=== PATIENT | female | born 1990 | race Caucasian/White ===

== ENCOUNTER → 2020-01-01 | Outpatient (CLI) | payer SELFPAY ==
[2020-01-09 09:34] LABS: HPV, High Risk Negative
[2020-01-09 09:35] LABS: Chlamydia By Nucleic Acid AMP Negative; Gonococcus By Nucleic Acid AMP Negative
== END | disposition home or self-care (01) ==
LOC: LABSPEC 16:45
PROVIDERS: Visit Provider Obstetrics & Gynecology
DX: Z12.4 Encounter for screening for malignant neoplasm of cervix (principal); Z11.3 Encounter for screening for infections with a predominantly sexual mode of transmission
CPT/HCPCS: 87491; 87591; 87623; 87624; 88175; G0145

== ENCOUNTER → 2020-01-15 16:17 | Outpatient (CLI) | payer SELFPAY ==
[2020-01-15 17:12] LABS: Absolute Lymphocyte Count 3.08 X10^3/uL (0.83-4.51); Absolute Neutrophil Count 9.2 X10^3/uL (2.0-7.7); Basophil# 0.04 X10^3/uL; Basophil% 0.3 % (0-1); Eosinophil# 0.08 X10^3/uL; Eosinophils% 0.6 % (0-5); Hematocrit 42.1 % (37-47); Hemoglobin 14.1 g/dL (12.0-15.0); Lymphocyte # 3.08 X10^3/ul (4.0); Lymphocyte % 23.2 % (19-41); Mean Corp Hgb Conc 33.5 g/dL (32-36); Mean Corpuscular Hgb 30.1 pg (27.0-32.0); Mean Platelet Vol. 9.7 fl (6.2-12.0); Monocyte# 0.84 X10^3/uL; Monocyte% 6.3 % (0-10); NRBC Flagged by Analyzer 0 % (0-5); Neutrophil # 9.16 X10^3/uL (2.7-7.7); Neutrophil % 69.1 % (47-70); Platelet Count 315 K/mm3 (150-450); RBC Distribution Width CV 12.2 % (11.6-14.6); RBC Distribution Width SD 39.6 fl (35.1-43.9); Red Blood Count 4.68 M/mm3 (4.2-5.4); White Blood Count 13.3 K/mm3 (4.4-11.0)
[2020-01-15 17:13] LABS: Color, Urine Straw (Yellow); Glucose, Dipstick Normal (Normal); Ketone-Dipstick Negative (Negative); Leukocyte Esterase-Dipstick 25 /ul (Negative); Nitrite-Dipstick Negative (Negative); Occult Blood-Urine Negative /ul (Negative); Protein-Dipstick Negative (Negative); Specific Gravity, Urine 1.005 (1.002-1.030); Urine Bilirubin Dipstick Negative (Negative); Urine Clarity Clear (Clear); Urine Urobilinogen Normal (Normal)
[2020-01-15 17:35] LABS: Amphetamine Urine VISTA NEGATIVE (<1000 ng/mL); Barbiturate Urine VISTA NEGATIVE (< 200 ng/mL); Benzodiazepine Urine VISTA NEGATIVE (< 200 ng/mL); Cocaine Urine VISTA NEGATIVE (< 300 ng/mL); Ecstacy Urine VISTA NEGATIVE (< 500 ng/mL); Methadone Urine VISTA NEGATIVE (< 300 ng/mL); PCP Urine VISTA NEGATIVE (< 25 ng/mL); THC Urine VISTA NEGATIVE (< 50 ng/mL); Vista UDS pH Range 6
[2020-01-15 18:51] LABS: Thyroid Stim Hormone (TSH) 2.03 uIU/mL (0.358-3.74)
[2020-01-16 10:34] LABS: HIV - WCH Non-Reactive (Nonreactive); Hepatitis B Surface Antigen Non-Reactive (Nonreactive); Hepatitis C Antibody Non-Reactive (Nonreactive); Rubella IgG 96.6 IU/mL
[2020-01-16 21:57] LABS: Prenatal RPR NONREACTIVE (NONREACTIVE)
== END ==
PROVIDERS: Visit Provider Obstetrics & Gynecology
DX: Z34.81 Encounter for supervision of other normal pregnancy, first trimester (principal)
CPT/HCPCS: 36415; 80307; 81002; 84443; 85025; 86703; 86762; 86803; 87340

== ENCOUNTER → 2020-06-05 09:08 | Outpatient (CLI) | payer SELFPAY ==
[2020-06-05 11:12] LABS: Hematocrit 37.9 % (37-47); Hemoglobin 12.5 g/dL (12.0-15.0); Mean Corpuscular Hgb 30.9 pg (27.0-32.0); Mean Corpuscular Volume 93.8 fL (81-99); Mean Platelet Vol. 10.1 fl (6.2-12.0); Platelet Count 281 K/mm3 (150-450); RBC Distribution Width CV 12.6 % (11.6-14.6); RBC Distribution Width SD 43.3 fl (35.1-43.9); Red Blood Count 4.04 M/mm3 (4.2-5.4); White Blood Count 11.5 K/mm3 (4.4-11.0)
[2020-06-05 11:18] LABS: Glucose Challenge Gest 1H 50g 149 mg/dL (70-140)
== END ==
PROVIDERS: Visit Provider Student in an Organized Health Care Education/Training Program
DX: Z34.83 Encounter for supervision of other normal pregnancy, third trimester (principal)
CPT/HCPCS: 36415; 82950; 85027

== ENCOUNTER → 2020-06-13 09:42 | Outpatient (CLI) | payer SELFPAY ==
[2020-06-13 11:01] LABS: Glucose GTT-Gestation. Fasting 86 mg/dL (<105)
[2020-06-13 11:38] LABS: Glucose GTT-Gestational 1 Hr 180 mg/dL (<190)
[2020-06-13 13:37] LABS: Glucose GTT-Gestational 2 Hr 181 mg/dL (<165)
[2020-06-13 14:53] LABS: Glucose GTT-Gestational 3 Hr 141 L (<145)
== END ==
PROVIDERS: PCP Family Medicine; Referring Provider Student in an Organized Health Care Education/Training Program; Visit Provider Student in an Organized Health Care Education/Training Program
DX: O24.912 Unspecified diabetes mellitus in pregnancy, second trimester (principal); Z3A.00 Weeks of gestation of pregnancy not specified
CPT/HCPCS: 36415; 82951; 82952

== ENCOUNTER → 2020-07-29 | Outpatient (CLI) | payer SELFPAY | END | disposition home or self-care (01) | LOC: LABSPEC 14:33 | PROVIDERS: PCP Family Medicine; Visit Provider Student in an Organized Health Care Education/Training Program | DX: Z36.85 Encounter for antenatal screening for Streptococcus B (principal) | CPT/HCPCS: 87081 ==

== ENCOUNTER → 2020-08-05 15:07 | Outpatient (CLI) | payer SELFPAY ==
[2020-08-05 15:21] LABS: Hematocrit 38.3 % (37-47); Hemoglobin 12.6 g/dL (12.0-15.0); Mean Corp Hgb Conc 32.9 g/dL (32-36); Mean Corpuscular Hgb 29.9 pg (27.0-32.0); Mean Corpuscular Volume 90.8 fL (81-99); Mean Platelet Vol. 9.9 fl (6.2-12.0); Platelet Count 288 K/mm3 (150-450); RBC Distribution Width CV 13.2 % (11.6-14.6); RBC Distribution Width SD 43.1 fl (35.1-43.9); Red Blood Count 4.22 M/mm3 (4.2-5.4); White Blood Count 13.1 K/mm3 (4.4-11.0)
[2020-08-05 15:28] LABS: Protein, Urine (Random) 6.5 mg/dL (<11.9); Protein:Creat Ratio 167 mg/g CRE (0-200)
[2020-08-05 15:35] LABS: ALB/GLOB Ratio 0.7 RATIO (0.9-2.4); AST(SGOT) 11 U/L (15-37); Alanine Aminotransfer ALT/SGPT 17 U/L (13-56); Albumin, Serum 2.8 g/dL (3.2-5.0); Alkaline Phosphatase 173 U/L (45-117); Anion Gap 9 (5-15); BUN 9 mg/dL (7-18); BUN/Creat Ratio 13.5 RATIO (10-20); Chloride 106 mmol/L (98-107); Creatinine, Serum 0.67 mg/dL (0.55-1.02); EST Glomerular Filtration Rate 112 mL/min (>60); Est Glom Filt Rate - Afr Amer 136 mL/min (>60); Globulin 4.1 g/dL (2.2-4.2); Glucose 105 mg/dL (74-106); LDH 137 U/L (84-246); Potassium 3.9 mmol/L (3.5-5.1); Protein, Total 6.9 g/dL (6.4-8.2); Sodium Level 138 mmol/L (136-145)
== END ==
PROVIDERS: PCP Family Medicine; Visit Provider Student in an Organized Health Care Education/Training Program
DX: O16.9 Unspecified maternal hypertension, unspecified trimester (principal); Z3A.00 Weeks of gestation of pregnancy not specified
CPT/HCPCS: 36415; 80053; 82570; 83615; 84156; 85027; 87086; 87088

== ENCOUNTER 2020-08-12 18:50 | Inpatient (IN) | payer SELFPAY ==
[2020-08-12 19:29] VITALS: BP 133/102; PULSE 88
[2020-08-12 19:30] VITALS: PULSE 94; TEMP 36.6; O2SAT 98; O2SAT 99
[2020-08-12] MEDS: Lactated Ringers 1,000 ML 50 ML IV (19:40)
[2020-08-12 19:47] VITALS: BP 133/94; PULSE 83
[2020-08-12 20:00] VITALS: BMI 38.7
[2020-08-12 20:06] LABS: Absolute Neutrophil Count 8.5 X10^3/uL (2.0-7.7); Basophil# 0.04 X10^3/uL; Basophil% 0.3 % (0-1); Eosinophils% 0.8 % (0-5); Hematocrit 36.6 % (37-47); Hemoglobin 12.2 g/dL (12.0-15.0); Lymphocyte % 19.4 % (19-41); Mean Corp Hgb Conc 33.3 g/dL (32-36); Mean Corpuscular Hgb 30.1 pg (27.0-32.0); Mean Corpuscular Volume 90.4 fL (81-99); Mean Platelet Vol. 10.1 fl (6.2-12.0); Monocyte# 0.78 X10^3/uL; Monocyte% 6.6 % (0-10); NRBC Flagged by Analyzer 0 % (0-5); Neutrophil # 8.53 X10^3/uL (2.7-7.7); Platelet Count 286 K/mm3 (150-450); RBC Distribution Width CV 13.5 % (11.6-14.6); RBC Distribution Width SD 43.9 fl (35.1-43.9); Red Blood Count 4.05 M/mm3 (4.2-5.4); White Blood Count 11.9 K/mm3 (4.4-11.0)
[2020-08-12] MEDS: miSOPROStol 25 MCG TABLET VAGINAL (20:30)
--- NOTE | 2020-08-12 20:41 | HP.PCM_ITS ---
- Problem List (1) 38 weeks gestation of Status: Acute History Date of Admission: 08/12/20 Final JARRELL: 08/25/20 Gestational age: 38 Weeks and 1 Days History of this : This is a 29 year-old, G [1], P [], at 38 1/7 weeks gestational age admitted for IOL with gestational HTN. Allergies No Known Allergies Allergy (Verified 08/12/20 19:58) Home Medications: Home Medications Pnv No.103/Folic/Om3s/Fish Oil [ Gummies] 1 ea PO 08/12/20 Smoking Status: Never smoker Alcohol: None Number of Fetus(es): 1 NST - FHR Rate Baby A Baseline: 150 Variability:: Moderate Accelerations:: 15 x 15 Decelerations:: None NST Reactive:: Yes FHR Category:: Category I Uterine Activity:: 0/10 History Past Pregnancies: Past Pregnancies Delivery Date Name GA/ Weeks Outcome Route Wt Sex Labor Length Anesthesia Delivery Location Provider FOB Labs: Mom[facility] Microbiology 08/12/20 19:50 Mucosa - Nose SARS-CoV-2 Antigen (Rapid) - Final Mom[facility] Labs & Results 08/12/20 08/12/20 19:40 19:40 WBC 11.9 H RBC 4.05 L Hgb 12.2 Hct 36.6 L MCV 90.4 MCH 30.1 MCHC 33.3 RDW Std Deviation 43.9 RDW Coeff of Cassie 13.5 Plt Count 286 MPV 10.1 Immature Gran % (Auto) 0.900 Neut % (Auto) 72.0 H Lymph % (Auto) 19.4 [place] % (Auto) 6.6 Eos % (Auto) 0.8 Baso % (Auto) 0.3 Absolute Neuts (auto) 8.5 H Absolute Lymphs (auto) 2.30 Nucleated RBC % 0 Blood Type Pending Antibody Screen Pending Course Did the patient receive Yes care? Labs Blood Type: A RH: POSITIVE RPR/VDRL/Syphilis Nonreactive Rubella status Immune HbSAg Negative Date Done: 01/15/20 Chlamydia Negative Gonorrhea Negative HIV/AIDS Non-Reactive Group B Strep: Negative Current Obstetrical History Gestational Diabetes No Incompetent Cervix No Infertility No IUGR No Macrosomia No Hypertension/Pre-eclampsia Yes Placenta Previa/Abruption No PTL/PROM No Uterine anomaly No Oligohydramnios No Polyhydramnios No Multiple gestation No Past Medical History Asthma No Diabetes No Hypertension No Heart disease No Mitral valve prolapse No Neurologic/Seizure disorder/ No Migraines Kidney disease No Liver disease No Varicosities No Clotting disorders/Hx of DVT No Thyroid Dysfunction No Other medical diseases No Psychiatric disorders No Major trauma No Abnormal PAP smear No Sleep apnea No Mammogram in the last 2 years No Social History Marital Status: Alleged father Norman Hx Smoking No Smoking Status Never smoker Expected Delivery Method: Spontaneous Vaginal Number of Visits: 12 Review of Systems Constitutional: Denies: Chills, Fever Eyes: Denies: Double vision, Vision Change HEENT: Denies: Head Aches Cardiovascular: Reports: Edema. Denies: Chest Pain Respiratory: Denies: Cough, Shortness of Breath Gastrointestinal: Denies: Abdominal Pain, Nausea, Vomiting Gynecological: Denies: Vaginal bleeding Physical Exam Vitals: Vital Signs Temp Pulse BP Pulse Ox 97.8 F 83 133/94 H 99 08/12/20 19:30 08/12/20 19:47 08/12/20 19:47 08/12/20 19:30 General: Alert, Oriented x3, Cooperative HEENT: Atraumatic, Normocephalic Cardiovascular: Regular rate, Regular Rhythm, Normal S1, Normal S2 Lungs: Clear to auscultation, Normal air movement Abdomen: Soft, Non Tender, Non-Distended, Gravid Extremities:: No edema Neurological: Neuro grossly intact Estimated gestational size: Appropriate for gestational size Cervix Dilation (cm): 1 - posterior, firm per RN exam Station: -3 Effacement (%): 60 Assessment/Plan All Active Problems 38 weeks gestation of (Acute) This is a 29 year-old, G [1], P [], at 38 1/7 weeks gestational age. -US confirms CEPHALIC -Misoprostol for IOL -Reviewed plan of care. Pt and given opportunity to ask questions and questions answered to their satisfaction.
[2020-08-12 22:38] VITALS: BP 135/93; PULSE 78
[2020-08-13] VITALS (64 sets, daily range): BP systolic 111–146; BP diastolic 56–97; PULSE 76–116; RESP 16–18; TEMP 36.3–37.3; O2SAT 92–100
[2020-08-13] MEDS: miSOPROStol 25 MCG TABLET VAGINAL (00:25)
[2020-08-13 00:57] LABS: ROM Internal Control Test YES-OK TO RESULT pt. (Internal QC); ROM Patient Test Negative (Negative)
[2020-08-13] MEDS: Lactated Ringers 500 ML 999 ML IV ×5 (02:16→17:28)
--- NOTE | 2020-08-13 03:42 | PCM.PN.BLA ---
Progress Note LABOR PROGRESS NOTE Mariza feels well. Denies fever, chills, nausea, headache, vision changes. AVSS GEN - NAD, AAO x 3 FHR 160, moderate variability, + recurrent late decelerations TOCO 5-6/10 min SVE deferred, recent SVE 1.5/60/-2 by RN A/P: 29yo G1 @ 38 2/7wga hx gHTN with late decelerations, tachysystole, Cat II FHR -Informed by nursing staff repositioning done as well as IV bolus. Will give additional 500cc bolus with terbutaline, O2 supplementation and re-evaluate. STROKE Vital Signs/Narrative: Vital Signs Temp Pulse BP Pulse Ox 08/13/20 03:25 80 133/93 H 99 08/13/20 02:07 77 111/70 08/13/20 00:20 76 134/89 H 08/13/20 00:19 98.4 F 97
[2020-08-13] MEDS: Terbutaline 1 MG/ML Vial 0.25 MG SC (03:56)
[2020-08-13] MEDS: Oxytocin 30 units/NS 500 ml 30 UNITS/500 ML IV.SOLN IV (05:13)
[2020-08-13] MEDS: Ondansetron 4 MG/2 ML Vial IV (07:40)
[2020-08-13] MEDS: fentaNYL-bupivacaine (epidural) 100 ML BAG EPIDURAL ×3 (08:25→19:05)
[2020-08-13] MEDS: Lactated Ringers 1,000 ML 200 ML IV ×2 (09:23→14:30)
[2020-08-13] MEDS: Oxytocin 30 units/NS 500 ml 30 UNITS/500 ML IV.SOLN 334 UNITS IV (19:28)
--- NOTE | 2020-08-13 19:40 | PCM.OPRPT ---
Vaginal Delivery Maternal Presentation: Active Labor Amniotic Membrane Rupture Type: Spontaneous Amniotic Fluid Description: Moderate meconium Final JARRELL: 08/25/20 Final JARRELL Source: US <20 weeks Gestational age: 38 Weeks and 2 Days doctor who attended delivery (if requested by OB): Arabella Newman thick MSF Date of Procedure: 08/13/20 Pre-Operative Diagnosis: IUP, Gestational HTN Post-Operative Diagnosis: IUP, Gestational HTN Surgery/ Procedure Performed: Vacuum Assisted Vaginal Delivery Type of Anesthesia: Epidural Description of Procedure: Spontaneous vaginal delivery of a viable female infant with Apgars of 8/9 from an occiput anterior presentation with moderately thick meconium stained fluid and meconium stained membranes and three-vessel umbilical cord. Cord around the neck and body tight. No episiotomy or lacerations. Kiwi vacuum used x1 gentle pull from low outlet to expedite delivery of the head after approximately 2 hours of pushing and deep decelerations. Sponges okay. Delivery physician: Jared Merrill MD. Presentation: Vertex Placental Delivery Description: Spontaneous Placenta Disposition: [facility] Cord Vessel Description: 3 Vessels Cord Gases drawn per routine: ABG, VBG Cord Entanglement: Around neck x 1, tight, - - Around body x1 tight Estimated Blood Loss: 250 cc (1 minute): 8 (5 minute): 9 Episiotomy Description: None Laceration: None Medications given after delivery: IV Pitocin Complications: None
--- NOTE | 2020-08-13 19:45 | DCINST_ITS ---
<Jared Merrill - Last Filed: 08/13/20 19:45> Discharge Diet: No Restrictions Discharge Activity: May Shower, May Take a Tub Bath May resume sexual activity in: 4-6 weeks Additional Activity Instructions:: Nothing in the vagina for 4-6 weeks. You may return to work/school in 6 weeks. Call your doctor if you observe: Fever of 101 or Higher, Inability to urinate, Inability to have a bowel movement, Using more than one pad per hour Additional Instructions: If you experience any of the following, contact your healthcare provider. * Bleeding that soaks a pad every hour for 2 hours * Fever 100.4 or higher * Unrelieved incision or abdominal pain * Swelling, redness, discharge or bleeding from your incision or episiotomy site * Your incision begins to separate * Problems urinating (including inability to urinate or burning while urinating). * Visual changes * Severe headache * Flu-like symptoms * Pain or redness in one of both of your breasts * Pain, warmth, tenderness or swelling in your legs, especially the calf area * Frequent nausea and vomiting * Symptoms of depression or anxiety If you experience any of the following, call 911 or go to the nearest Emergency Room. * Chest pain * Problems breathing * Seizure activity * Partial or complete paralysis of a body part, slurred speech, weakness or drooping of the face, or a sudden inability to walk or hold your balance Allergies/Adverse Reactions: Allergies No Known Allergies Allergy (Verified 08/12/20 19:58) Medications to take at Discharge Pnv No.103/Folic/Om3s/Fish Oil [ Gummies] 1 ea PO 08/12/20 Please Follow Up With: Skylar Villela, DO - [phone] When: Call to make an appointment with your doctor in 6 weeks. Primary Care Physician: Earl Wynne MD [Primary Care Provider] - Test Results: Test results from this visit will be discussed in further detail at your follow- up appointment, if applicable. <Skylar Villela - Last Filed: 08/15/20 08:40> Additional Instructions: If you experience any of the following, contact your healthcare provider. * Bleeding that soaks a pad every hour for 2 hours * Fever 100.4 or higher * Unrelieved incision or abdominal pain * Swelling, redness, discharge or bleeding from your incision or episiotomy site * Your incision begins to separate * Problems urinating (including inability to urinate or burning while urinati ng). * Visual changes * Severe headache * Flu-like symptoms * Pain or redness in one of both of your breasts * Pain, warmth, tenderness or swelling in your legs, especially the calf area * Frequent nausea and vomiting * Symptoms of depression or anxiety If you experience any of the following, call 911 or go to the nearest Emergency Room. * Chest pain * Problems breathing * Seizure activity * Partial or complete paralysis of a body part, slurred speech, weakness or drooping of the face, or a sudden inability to walk or hold your balance When: Call to make 2 week telehealth visit Test Results: Test results from this visit will be discussed in further detail at your follow- up appointment, if applicable.
--- NOTE | 2020-08-13 19:45 | PCM.DCVAG ---
<DesiraeJared - Last Filed: 08/13/20 19:45> Discharge Diet: No Restrictions Discharge Activity: May Shower, May Take a Tub Bath May resume sexual activity in: 4-6 weeks Additional Activity Instructions:: Nothing in the vagina for 4-6 weeks. You may return to work/school in 6 weeks. Call your doctor if you observe: Fever of 101 or Higher, Inability to urinate, Inability to have a bowel movement, Using more than one pad per hour Additional Instructions: If you experience any of the following, contact your healthcare provider. Bleeding that soaks a pad every hour for 2 hours Fever 100.4 or higher Unrelieved incision or abdominal pain Swelling, redness, discharge or bleeding from your incision or episiotomy site Your incision begins to separate Problems urinating (including inability to urinate or burning while urinating). Visual changes Severe headache Flu-like symptoms Pain or redness in one of both of your breasts Pain, warmth, tenderness or swelling in your legs, especially the calf area Frequent nausea and vomiting Symptoms of depression or anxiety If you experience any of the following, call 911 or go to the nearest Emergency Room. Chest pain Problems breathing Seizure activity Partial or complete paralysis of a body part, slurred speech, weakness or drooping of the face, or a sudden inability to walk or hold your balance Allergies/Adverse Reactions: Allergies No Known Allergies Allergy (Verified 08/12/20 19:58) Medications to take at Discharge Pnv No.103/Folic/Om3s/Fish Oil [ Gummies] 1 ea PO 08/12/20 Please Follow Up With: Skylar Villela, DO - [phone] When: Call to make an appointment with your doctor in 6 weeks. Primary Care Physician: Earl Wynne MD [Primary Care Provider] - Test Results: Test results from this visit will be discussed in further detail at your follow-up appointment, if applicable. <Skylar Villela - Last Filed: 08/15/20 08:40> Additional Instructions: If you experience any of the following, contact your healthcare provider. Bleeding that soaks a pad every hour for 2 hours Fever 100.4 or higher Unrelieved incision or abdominal pain Swelling, redness, discharge or bleeding from your incision or episiotomy site Your incision begins to separate Problems urinating (including inability to urinate or burning while urinating). Visual changes Severe headache Flu-like symptoms Pain or redness in one of both of your breasts Pain, warmth, tenderness or swelling in your legs, especially the calf area Frequent nausea and vomiting Symptoms of depression or anxiety If you experience any of the following, call 911 or go to the nearest Emergency Room. Chest pain Problems breathing Seizure activity Partial or complete paralysis of a body part, slurred speech, weakness or drooping of the face, or a sudden inability to walk or hold your balance When: Call to make 2 week telehealth visit Test Results: Test results from this visit will be discussed in further detail at your follow-up appointment, if applicable.
[2020-08-14] VITALS (19 sets, daily range): BP systolic 114–136; BP diastolic 60–88; PULSE 90–103; RESP 18–20; TEMP 36.3–37; O2SAT 97–99
[2020-08-14 02:46] LABS: Absolute Lymphocyte Count 2.72 X10^3/uL (0.83-4.51); Absolute Neutrophil Count 12.6 X10^3/uL (2.0-7.7); Basophil# 0.04 X10^3/uL; Basophil% 0.2 % (0-1); Eosinophils% 0.6 % (0-5); Hematocrit 29.3 % (37-47); Hemoglobin 9.5 g/dL (12.0-15.0); Lymphocyte # 2.72 X10^3/ul (4.0); Lymphocyte % 16.3 % (19-41); Mean Corp Hgb Conc 32.4 g/dL (32-36); Mean Corpuscular Hgb 30.3 pg (27.0-32.0); Mean Corpuscular Volume 93.3 fL (81-99); Mean Platelet Vol. 9.9 fl (6.2-12.0); Monocyte# 1.16 X10^3/uL; Monocyte% 6.9 % (0-10); NRBC Flagged by Analyzer 0 % (0-5); Neutrophil # 12.55 X10^3/uL (2.7-7.7); Neutrophil % 75.2 % (47-70); Platelet Count 241 K/mm3 (150-450); RBC Distribution Width CV 13.9 % (11.6-14.6); RBC Distribution Width SD 46.7 fl (35.1-43.9); Red Blood Count 3.14 M/mm3 (4.2-5.4); White Blood Count 16.7 K/mm3 (4.4-11.0)
[2020-08-14] MEDS: Acetaminophen 500 MG Tablet 1000 MG PO (02:46)
--- NOTE | 2020-08-14 05:24 | NURSING ---
Call from Dr. Merrill. Updated Dr. Merrill that patient's bleeding is now small, vázquez catheter is in and draining, hemoglobin level dropped to 9.5. Also updated Dr. Merrill that patient's labia are swollen and abrasions appear bilaterally. Patient reports feeling better. Plan is to continue current plan of care and continue to monitor bleeding.
--- NOTE | 2020-08-14 08:35 | NURSING ---
significant labial edema noted. soft, no hematoma noted. Encourage ice packs and anti inflammatories. kathie remains in. will reassess later today.
[2020-08-14] MEDS: Ibuprofen 600 MG Tablet PO ×2 (08:46→16:55)
--- NOTE | 2020-08-14 08:48 | PN.OBGYN_ITS ---
Patient Problems: Active and Suspected Problems 38 weeks gestation of (Acute) Subjective: Labial and perineal swelling. Pain well controlled. Objective: Pelvic exam: Moderate swelling bilateral labia. Minimal to no bleeding with palpation of fundus. - Physical Exam Vitals/I&O's: Vital Signs Temp Pulse Resp BP Pulse Ox 98.3 F 91 18 130/84 H 98 08/14/20 08:30 08/14/20 08:30 08/14/20 08:32 08/14/20 08:30 08/14/20 08:30 Oxygen Delivery Method Room Air Weight: 219 lb Body Mass Index (BMI) 38.7 Intake and Output for Last 24 Hours 08/12/20 08/13/20 08/14/20 23:59 23:59 23:59 Intake Total 150 / 150 6364.06 / 6364.06 0 / 0 Output Total 2100 / 2100 500 / 500 Balance 150 / 150 4264.06 / 4264.06 -500 / -500 General: Alert, Oriented x3, Cooperative, No apparent distress HEENT: Atraumatic, PERRLA Oral: Moist Mucosa Neck: No JVD Abdomen: Soft, Non Tender, - - Fundus firm and below umbilicus Extremities: No clubbing, No cyanosis, No edema Neurological: Neuro grossly intact Psych/Mental Status: Normal Affect, Appropriate, Alert and oriented to time, place, person, mood and affect Microbiology Past 72 Hours 08/12/20 19:50 Mucosa - Nose SARS-CoV-2 Antigen (Rapid) - Final Laboratory Results 08/14/20 02:38: WBC 16.7 H, RBC 3.14 L, Hgb 9.5 L, Hct 29.3 L, MCV 93.3, MCH 30.3, MCHC 32.4, RDW Std Deviation 46.7 H, RDW Coeff of Cassie 13.9, Plt Count 241, MPV 9.9, Immature Gran % (Auto) 0.800, Neut % (Auto) 75.2 H, Lymph % (Auto) 16.3 L, [place] % (Auto) 6.9, Eos % (Auto) 0.6, Baso % (Auto) 0.2, Absolute Neuts (auto) 12.6 H, Absolute Lymphs (auto) 2.72, Nucleated RBC % 0 Current Medications Acetaminophen (Acetaminophen 500 Mg Tablet) 1,000 mg PO Q8H PRN PRN PRN Reason: Pain Score 1-3 Last Admin: 08/14/20 02:46 Dose: 1,000 mg Documented by: Bisacodyl (Bisacodyl 10 Mg Suppository) 10 mg RECTAL UD PRN PRN Reason: If no BM Dibucaine (Dibucaine 30 Gm Tube) 1 applic TOPICAL TID PRN PRN; Protocol PRN Reason: Discomfort Hydrocortisone (Hydrocortisone 2.5% Crm) 1 applic TOPICAL TID PRN PRN; Protocol PRN Reason: Discomfort Ibuprofen (Ibuprofen 600 Mg Tablet) 600 mg PO Q6H PRN PRN PRN Reason: Pain Score 1-3 Last Admin: 08/14/20 08:46 Dose: 600 mg Documented by: Methylergonovine Maleate (Methylergonovine 0.2 Mg/Ml Ampul) 0.2 mg IM X1 PRN PRN Reason: Excess bleeding/uterine atony Ondansetron HCl (Ondansetron 4 Mg/2 Ml Vial) 4 mg IV Q4H PRN PRN PRN Reason: Nausea Oxycodone HCl (Oxycodone 5 Mg Tablet) 5 - 10 mg PO Q4H PRN PRN PRN Reason: Pain Score 4-10 Senna/Docusate Sodium (Senna/Docusate Sodium 1 Tablet) 1 - 2 tablet PO DAILY PRN PRN PRN Reason: Constipation Simethicone (Simethicone 80 Mg Tablet) 80 mg PO PCHS PRN PRN Reason: Indigestion/Stomach pain Sodium Chloride (0.9% Saline Lock 10 Ml Syringe) 5 - 15 ml IV UD PRN PRN Reason: SALINE FLUSH Zolpidem Tartrate (Zolpidem Tartrate 5 Mg Tablet) 5 mg PO QHS PRN PRN PRN Reason: Insomnia Medical Necessity - Tobacco Use Smoking Status: Never smoker Assessment/Plan All Active Problems 38 weeks gestation of (Acute) day 1 status post vacuum-assisted vaginal delivery. Breast-feeding. Labial and perineal swelling within normal limits after 3 hours of pushing and vacuum delivery. We will continue to monitor. Likely discharge home tomorrow
--- NOTE | 2020-08-14 12:44 | NURSING ---
Labial edema slightly less than this AM. Cont ice packs and meds. Durbin remains in place.
--- NOTE | 2020-08-14 23:00 | NURSING ---
Jake brought to room to assess swelling and abrasion of labia, states swelling is improved from last night. Yusuf RN and this RN made decision to remove vázquez catheter.
[2020-08-15] VITALS (7 sets, daily range): BP systolic 114–134; BP diastolic 62–95; PULSE 78–112; RESP 16; TEMP 36.5–37; O2SAT 98
[2020-08-15] MEDS: Ibuprofen 600 MG Tablet PO ×2 (03:11→10:13)
--- NOTE | 2020-08-15 08:40 | PCM.PN.OB ---
Patient Problems: Active and Suspected Problems 38 weeks gestation of (Acute) Subjective: Patient feeling well. Lochia minimal. Voiding spontaneously. Feeling much improved today. Less swelling. - Physical Exam Vitals/I&O's: Vital Signs Temp Pulse Resp BP Pulse Ox 97.7 F L 89 16 114/73 98 08/15/20 01:07 08/15/20 08:11 08/15/20 01:07 08/15/20 08:11 08/15/20 01:07 Oxygen Delivery Method Room Air Weight: 99.337 kg Body Mass Index (BMI) 38.7 Intake and Output for Last 24 Hours 08/13/20 08/14/20 08/15/20 23:59 23:59 23:59 Intake Total 6364.06 / 6364.06 0 / 0 Output Total 2099 / 2099 2049 / 2049 700 / 700 Balance 4264.06 / 4264.06 -2049 / -2049 -700 / -700 General: Alert, Oriented x3 HEENT: Atraumatic, Normocephalic Neck: Supple Lungs: Normal air movement Cardiovascular: Regular rate Abdomen: Soft - Uterus 2 cm below umbilicus Labia inspected due to abrasions per patient/nursing - noted bilateral labial abrasion. left labia with clot formed. no active bleeding on either side. Extremities: No edema Neurological: Cranial nerves II-XII grossly intact Psych/Mental Status: Normal Affect Microbiology Past 72 Hours 08/12/20 19:50 Mucosa - Nose SARS-CoV-2 Antigen (Rapid) - Final Current Medications Acetaminophen (Acetaminophen 500 Mg Tablet) 1,000 mg PO Q8H PRN PRN PRN Reason: Pain Score 1-3 Last Admin: 08/14/20 02:46 Dose: 1,000 mg Documented by: Bisacodyl (Bisacodyl 10 Mg Suppository) 10 mg RECTAL UD PRN PRN Reason: If no BM Dibucaine (Dibucaine 30 Gm Tube) 1 applic TOPICAL TID PRN PRN; Protocol PRN Reason: Discomfort Hydrocortisone (Hydrocortisone 2.5% Crm) 1 applic TOPICAL TID PRN PRN; Protocol PRN Reason: Discomfort Ibuprofen (Ibuprofen 600 Mg Tablet) 600 mg PO Q6H PRN PRN PRN Reason: Pain Score 1-3 Last Admin: 08/15/20 03:11 Dose: 600 mg Documented by: Methylergonovine Maleate (Methylergonovine 0.2 Mg/Ml Ampul) 0.2 mg IM X1 PRN PRN Reason: Excess bleeding/uterine atony Ondansetron HCl (Ondansetron 4 Mg/2 Ml Vial) 4 mg IV Q4H PRN PRN PRN Reason: Nausea Oxycodone HCl (Oxycodone 5 Mg Tablet) 5 - 10 mg PO Q4H PRN PRN PRN Reason: Pain Score 4-10 Senna/Docusate Sodium (Senna/Docusate Sodium 1 Tablet) 1 - 2 tablet PO DAILY PRN PRN PRN Reason: Constipation Simethicone (Simethicone 80 Mg Tablet) 80 mg PO PCHS PRN PRN Reason: Indigestion/Stomach pain Sodium Chloride (0.9% Saline Lock 10 Ml Syringe) 5 - 15 ml IV UD PRN PRN Reason: SALINE FLUSH Zolpidem Tartrate (Zolpidem Tartrate 5 Mg Tablet) 5 mg PO QHS PRN PRN PRN Reason: Insomnia Medical Necessity - Tobacco Use Smoking Status: Never smoker Assessment/Plan All Active Problems 38 weeks gestation of (Acute) PPD#2 s/p VAVD. Gestational hypertension: BPs normotensive. Post delivery urinary retention: resolved. Labial abrasions: hemostatic at this time. Labia continue to be edematous. Recommend monitoring without surgical intervention at this time. Expect abrasions to heal with secondary intention. 1w visit for BP, 6w PP visit.
[2020-08-15] MEDS: Senna/Docusate Sodium 1 Tablet PO (10:14)
[2020-08-15] MEDS: Dibucaine 30 GM Tube 1 APPLIC TOPICAL (10:14)
== END 2020-08-15 13:00 | disposition home or self-care (01) | DRG 807 ==
PROVIDERS: Obstetrics & Gynecology; Admitting Provider Obstetrics & Gynecology; PCP Family Medicine; Referring Provider Obstetrics & Gynecology; Visit Provider Obstetrics & Gynecology
DX: O76 Abnormality in fetal heart rate and rhythm complicating labor and delivery (principal); Z37.0 Single live birth; O13.4 Gestational [pregnancy-induced] hypertension without significant proteinuria, complicating childbirth; O42.02 Full-term premature rupture of membranes, onset of labor within 24 hours of rupture; O77.0 Labor and delivery complicated by meconium in amniotic fluid; O69.1XX0 Labor and delivery complicated by cord around neck, with compression, not applicable or unspecified; O69.2XX0 Labor and delivery complicated by other cord entanglement, with compression, not applicable or unspecified; O71.82 Other specified trauma to perineum and vulva; Z3A.38 38 weeks gestation of pregnancy
CPT/HCPCS: 59025; 59050; 76815; 84112; 85025; 86850; 86900; 86901; 87426; 99218; J7120; G0378; J2405

== ENCOUNTER 2020-08-17 21:10 | Outpatient (CLI) | payer SELFPAY ==
[2020-08-17] VITALS (8 sets, daily range): BP systolic 125–159; BP diastolic 80–88; PULSE 53–105; TEMP 37.1; O2SAT 82–99; BMI 40.8
[2020-08-17] MEDS: 0.9% Saline Lock 10 ML Syringe IV (22:35)
[2020-08-17 22:50] LABS: Color, Urine Yellow (Yellow); Glucose, Dipstick Normal (Normal); Ketone-Dipstick Negative (Negative); Leukocyte Esterase-Dipstick Negative /ul (Negative); Mucous, Urine 0 SEEN /hpf (<or=2+); Nitrite-Dipstick Positive (Negative); Occult Blood-Urine Negative /ul (Negative); Protein-Dipstick Negative (Negative); Red Blood Cells-Urine 0 SEEN /hpf (0-5); Squamous Epithelial Cells - UA 0 SEEN /hpf (5-10); Urine Bilirubin Dipstick Negative (Negative); Urine Clarity Clear (Clear); Urine Urobilinogen Normal (Normal); White Blood Cells 0 SEEN /hpf (0-5)
--- NOTE | 2020-08-17 22:51 | NURSING ---
this RN to not complete OBS medical screening exam per charge nurse since pt is and not a rule out labor at this time. see connect for this farm field manager and vital signs.
[2020-08-17 22:53] LABS: Hematocrit 24.8 % (37-47); Hemoglobin 7.9 g/dL (12.0-15.0); Mean Corp Hgb Conc 31.9 g/dL (32-36); Mean Corpuscular Volume 94.3 fL (81-99); Mean Platelet Vol. 9.4 fl (6.2-12.0); Platelet Count 284 K/mm3 (150-450); RBC Distribution Width CV 14.3 % (11.6-14.6); RBC Distribution Width SD 47.4 fl (35.1-43.9); Red Blood Count 2.63 M/mm3 (4.2-5.4)
[2020-08-17 22:56] LABS: Bacteria 3+ /hpf (None Seen)
[2020-08-17 23:01] LABS: Protein, Urine (Random) 6.6 mg/dL (<11.9); Protein:Creat Ratio 166 mg/g CRE (0-200)
[2020-08-17 23:14] LABS: ALB/GLOB Ratio 0.7 RATIO (0.9-2.4); AST(SGOT) 27 U/L (15-37); Alanine Aminotransfer ALT/SGPT 30 U/L (13-56); Albumin, Serum 2.5 g/dL (3.2-5.0); Alkaline Phosphatase 112 U/L (45-117); Anion Gap 5 (5-15); BUN 13 mg/dL (7-18); BUN/Creat Ratio 14.2 RATIO (10-20); Calcium,Total 8.5 mg/dL (8.5-10.1); Chloride 110 mmol/L (98-107); Creatinine, Serum 0.92 mg/dL (0.55-1.02); EST Glomerular Filtration Rate 78 mL/min (>60); Est Glom Filt Rate - Afr Amer 94 mL/min (>60); Estimated Creatinine Clearance 65.98 ml/min; Globulin 3.7 g/dL (2.2-4.2); Glucose 91 mg/dL (74-106); LDH 177 U/L (84-246); Potassium 3.7 mmol/L (3.5-5.1); Protein, Total 6.2 g/dL (6.4-8.2); Sodium Level 142 mmol/L (136-145)
--- NOTE | 2020-08-18 18:17 | PCM.PN.BLA ---
Progress Note Triage Note 29 yo PP with elevated blood pressure. BP at home was 160/100s. Mild 1/10 headache, had taken no medications. No other symptoms. Patient had gestational HTN during . Initial blood pressure was elevated, however the following were wnl. Exam per nursing wnl, no clonus. Labs wnl aside from UTI. Patient discharged home with precautions. Follow up this week for BP check. Keflex sent for UTI.
== END 2020-08-17 23:45 | disposition home or self-care (01) ==
LOC: WPOUT 21:17 → WP 21:18
PROVIDERS: PCP Family Medicine; Visit Provider Student in an Organized Health Care Education/Training Program
DX: O13.5 Gestational [pregnancy-induced] hypertension without significant proteinuria, complicating the puerperium (principal); O86.20 Urinary tract infection following delivery, unspecified
CPT/HCPCS: 36415; 80053; 81001; 82570; 83615; 84156; 85027; 99218; A4216; G0378

== ENCOUNTER 2024-04-11 13:16 | Inpatient (IN) | payer SELFPAY ==
[2024-04-11] VITALS (41 sets, daily range): BP systolic 100–183; BP diastolic 55–142; PULSE 76–100; RESP 16; TEMP 36.1–36.5; O2SAT 97–99; BMI 40.1
[2024-04-11 11:51] LABS: Hematocrit 37.3 % (37-47); Hemoglobin 12.2 g/dL (12.0-15.0); Mean Corp Hgb Conc 32.7 g/dL (32-36); Mean Corpuscular Hgb 28.7 pg (27.0-32.0); Mean Corpuscular Volume 87.8 fL (81-99); Mean Platelet Vol. 10.5 fl (6.2-12.0); Platelet Count 262 K/mm3 (150-450); RBC Distribution Width CV 14.6 % (11.6-14.6); RBC Distribution Width SD 46.2 fl (35.1-43.9); Red Blood Count 4.25 M/mm3 (4.2-5.4); White Blood Count 11.2 K/mm3 (4.4-11.0)
[2024-04-11 11:56] LABS: AST(SGOT) 16 U/L (15-37); Alanine Aminotransfer ALT/SGPT 15 U/L (13-56); Creatinine, Serum 0.63 mg/dL (0.55-1.02); EST Glomerular Filtration Rate 116 mL/min (>60); Est Glom Filt Rate - Afr Amer 141 mL/min (>60); Estimated Creatinine Clearance 153.76 ml/min; Uric Acid 5.2 mg/dL (2.6-6.0)
[2024-04-11 11:58] LABS: Protein, Urine (Random) 11.7 mg/dL (<11.9); Protein:Creat Ratio 178 mg/g CRE (0-200)
--- NOTE | 2024-04-11 13:27 | PCM.HP.OB ---
HPI - General General Date of Admission: 04/11/24 Date of Service: 04/11/24 Chief Complaint: Elevated blood pressure HPI Narrative JUAN PATTERSON, 33-year-old 2 para 1 who presents at 37-4/7 weeks from the office with increased blood pressures. She has a history of gestational hypertension in her previous pregnancies. She has been on aspirin prophylaxis. She denies any vaginal bleeding or leaking of fluid or regular contractions. She has had good movement. She denies any headache or visual changes or epigastric pain. is complicated to date by maternal obesity, history of gestational hypertension, history of anxiety Maternal Data Information Final JARRELL: 04/28/24 Gestational age: 37 4/7 PFSH PFSH Home Medications ?Medication ?Instructions ?Recorded ?Last Taken ?Type 103-folic acid 400 1 ea PO DAILY Check with primary 08/12/20 04/11/24 08:00 History mcg-omeg3 32.5 mg-dha-fish oil doctor chew tablet aspirin 81 mg chewable tablet 2 tab PO DAILY 04/11/24 04/11/24 08:00 History (Marcio Chewable Low Dose Aspirin) cholecalciferol (vitamin D3) 25 1,000 unit PO QDAY 04/11/24 04/11/24 08:00 History mcg (1,000 unit) capsule (Vitamin D3) Allergy/AdvReac Type Severity Reaction Status Date / Time No Known Allergies Allergy Verified 04/11/24 10:55 Social History Smoking Status: Never smoker History Elective abortions Hx Para 0 Spontaneous abortions Hx # Term Pregnancies Ectopic pregnancies Hx # Pregnancies Multiple births # of living children ROS Constitutional Constitutional: Denies fatigue, fever(s) or malaise Eyes Eyes: Denies change in vision ENT HEENT: Denies dizziness or headache(s) Cardiovascular Cardiovascular: Denies chest pain, dyspnea or lightheadedness Respiratory/Chest Respiratory/Chest: Denies cough or dyspnea Gastrointestinal Gastrointestinal: Denies change in bowel habits Genitourinary Genitourinary: Denies burning urination or genital lesions Integumentary Integumentary: Denies rash Neurologic Neurologic: Denies confusion, dizziness, headache(s), numbness or weakness Vital Signs Vital Signs Vital Signs: 04/11/24 11:00 04/11/24 11:00 04/11/24 11:00 Temperature Temperature Source Temporal Pulse Rate 80 Respiratory Rate Blood Pressure 144/100 H BP Systolic 144 BP Diastolic 100 Pulse Ox 04/11/24 11:00 04/11/24 11:00 04/11/24 11:00 Temperature 97.3 F L Temperature Source Pulse Rate Respiratory Rate 16 Blood Pressure BP Systolic BP Diastolic Pulse Ox 97 04/11/24 11:01 04/11/24 11:01 04/11/24 11:03 Temperature Temperature Source Pulse Rate 84 Respiratory Rate Blood Pressure 144/100 H BP Systolic 144 BP Diastolic 100 Pulse Ox 97 04/11/24 11:03 04/11/24 11:18 04/11/24 11:18 Temperature Temperature Source Pulse Rate 81 83 Respiratory Rate Blood Pressure 139/102 H BP Systolic 139 BP Diastolic 102 Pulse Ox 04/11/24 11:33 04/11/24 11:33 04/11/24 11:49 Temperature Temperature Source Pulse Rate 86 Respiratory Rate Blood Pressure 145/111 H 146/108 H BP Systolic 145 146 BP Diastolic 111 108 Pulse Ox 04/11/24 11:49 04/11/24 12:04 04/11/24 12:04 Temperature Temperature Source Pulse Rate 82 78 Respiratory Rate Blood Pressure 155/101 H BP Systolic 155 BP Diastolic 101 Pulse Ox 04/11/24 12:18 04/11/24 12:18 04/11/24 12:33 Temperature Temperature Source Pulse Rate 88 Respiratory Rate Blood Pressure 172/108 H 159/98 H BP Systolic 172 159 BP Diastolic 108 98 Pulse Ox 04/11/24 12:33 04/11/24 12:48 04/11/24 12:48 Temperature Temperature Source Pulse Rate 84 81 Respiratory Rate Blood Pressure 149/101 H BP Systolic 149 BP Diastolic 101 Pulse Ox 04/11/24 13:03 04/11/24 13:03 04/11/24 13:18 Temperature Temperature Source Pulse Rate 78 Respiratory Rate Blood Pressure 149/101 H 134/93 H BP Systolic 149 134 BP Diastolic 101 93 Pulse Ox 04/11/24 13:18 Temperature Temperature Source Pulse Rate 79 Respiratory Rate Blood Pressure BP Systolic BP Diastolic Pulse Ox Weight Weight: 106.141 kg Body Mass Index (BMI) 40.1 Physical Exam Narrative 2+ DTRs, no clonus Const alert and no apparent distress General Appearance: cooperative HEENT normocephalic Resp normal respiratory effort Cardio regular rate GI soft to palpation GI Narrative: gravid, nontender, appropriate for gestational age Extremity no calf tenderness General Extremity: edema Skin no wounds Rashes: No rashes noted Psych activity/motor behavior normal Labs Labs Labs: Blood Type A POSITIVE Antibody Screen NEGATIVE Hct 37.3 % (37-47) Hgb 12.2 g/dL (12.0-15.0) Rubella IgG Antibody 96.6 IU/mL Hep Bs Antigen Non-Reactive (Nonreactive) Hepatitis C Antibody Non-Reactive (Nonreactive) N.gonorrhoeae DNA (GERA) Negative HIV 1&2 Antibody Non-Reactive (Nonreactive) Glucose 1 Hr 50 gm 149 mg/dL (70-140) H Gest Glucose Tolerance MG/DL Rhogam given: No Assessment & Plan (1) 37 weeks gestation of : PLAN: Risk benefits alternatives to induction of labor discussed with the patient, her questions were answered to her satisfaction she desires to proceed. Estimated weight is less than 4000 g clinically and pelvis clinically adequate to expect vaginal delivery. Will monitor blood pressures. At this point no signs or symptoms of preeclampsia with severe features. Initiated Procardia to help maintain blood pressure control. Will undergo Pitocin with artificial rupture membranes for induction. Cervix is currently 3, 80, -2, medium consistency and mid position. Artificial rupture membranes returned moderate amount of clear fluid. May use routine pain control measures as needed for pain control in labor. (2) High risk multigravida in third trimester: (3) Gestational hypertension: (4) Maternal obesity syndrome in third trimester: (5) BMI 40.0-44.9, adult:
[2024-04-11] MEDS: NIFEdipine 10 MG Capsule PO (13:40)
[2024-04-11] MEDS: NIFEdipine 30 MG Tablet PO (14:31)
[2024-04-11 15:27] LABS: Absolute Lymphocyte Count 1.83 X10^3/uL (0.83-4.51); Absolute Neutrophil Count 8.4 X10^3/uL (2.0-7.7); Basophil# 0.06 X10^3/uL; Basophil% 0.5 % (0-1); Eosinophil# 0.14 X10^3/uL; Eosinophils% 1.2 % (0-5); Lymphocyte # 1.83 X10^3/ul (0.83-4.51); Lymphocyte % 16.2 % (19-41); Monocyte# 0.78 X10^3/uL; Monocyte% 6.9 % (0-10); NRBC Flagged by Analyzer 0 % (0-5); Neutrophil # 8.41 X10^3/uL (2.7-7.7); Neutrophil % 74.7 % (47-70)
[2024-04-11 16:46] LABS: Syphilis Antibodies Non-reactive
[2024-04-11] MEDS: Oxytocin 15 Units/NS 250ml 15 UNITS/250 ML IV.SOLN 2 UNITS IV (19:53)
[2024-04-11] MEDS: Lactated Ringers 1,000 ML 200 ML IV (19:54)
[2024-04-11] MEDS: Lactated Ringers 1,000 ML 999 ML IV (20:12)
[2024-04-11] MEDS: Ondansetron 4 MG/2 ML Vial IV (20:56)
[2024-04-11] MEDS: Mag /Aluminum/Simeth WCH UDC 30 ML ORAL.SUSP PO (21:02)
[2024-04-11] MEDS: fentaNYL-bupivacaine (epidural) 100 ML BAG EPIDURAL (21:37)
[2024-04-11] MEDS: LACTATED RINGERS 500 ML 999 ML IV (21:41)
[2024-04-11] MEDS: Oxytocin 15 Units/NS 250ml 15 UNITS/250 ML IV.SOLN 334 UNITS IV (22:47)
--- NOTE | 2024-04-11 23:04 | EX.PCM.OBRPT ---
Assessment & Plan (1) (spontaneous vaginal delivery): (2) Single live : (3) Second degree laceration of perineum, delivered, current hospitalization: Maternal Data Information Final JARRELL: 04/28/24 Gestational age: 37 4/7 Vaginal Delivery Maternal Presentation Maternal Presentation: Medically Indicated Induction Type of Induction: Pitocin and Amniotomy Medical Reason for Induction: Gestational Hypertension Operative Information Date of Procedure: 04/11/24 Pre-Operative Diagnosis: Labor Post-Operative Diagnosis: Same Surgery / Procedure Performed: Spontaneous Vaginal Delivery Type of Anesthesia: Epidural Drain: - (none) Estimated Blood Loss: 300 Time of Delivery: 22:45 Findings Description of Procedure: A vigorous male was delivered MYLA over a second-degree perineal laceration. The baby delivered easily through the loose nuchal cord x 1. The remainder the infant was delivered with maternal pushing and gentle traction only in less than 15 seconds. The Pitocin infusion was initiated for active management of the third stage. The cord was clamped and cut after cord pulsations ceased. The was attended to by the waiting nursing staff. The placenta was delivered spontaneously and intact. The cervix and vagina were intact. The second-degree perineal laceration was repaired with 2-0 Vicryl suture in a running standard fashion. Sponge and needle counts were correct. A vaginal sweep was completed by me. Presentation: MYLA Amniotic Membrane Rupture Type: Artificial Amniotic Fluid Description: Clear Placental Delivery Description: Spontaneous Placenta Disposition: [facility] Cord Vessel Description: 3 Vessels Cord Entanglement: Around neck x 1, loose Nuchal Cord Compression: Without compression A Gender: Male (1 minute): 9 (5 minute): 9 Delayed Cord Clamping: Yes Post Vaginal Delivery Medications Given After Delivery: IV Pitocin Episiotomy Description: None Laceration: 2nd degree Complication Complications: None
[2024-04-12] VITALS (13 sets, daily range): BP systolic 113–154; BP diastolic 68–103; PULSE 77–100; RESP 16–18; TEMP 35.6–36.7; O2SAT 97–99
--- NOTE | 2024-04-12 02:27 | NURSING ---
[facility] this RN to assume care of couplet at this time.
--- NOTE | 2024-04-12 08:51 | PCM.PN.CNM ---
Subjective Subjective Patient seen at bedside. Denies any pain. Ambulating and voiding without difficulty. Lochia decreasing. Objective Data Objective Data Vital Signs: Vital Signs Temp Pulse Resp BP Pulse Ox O2 Del Method 97.6 F L 84 16 121/81 H 97 Room Air 04/12/24 03:32 04/12/24 03:32 04/12/24 03:32 04/12/24 03:32 04/12/24 03:32 04/12/24 03:32 Oxygen Delivery Method Room Air Weight: 234 lb Body Mass Index (BMI) 40.1 Intake & Output: Intake and Output for Last 24 Hours 04/10/24 04/11/24 04/12/24 23:59 23:59 23:59 Intake Total 2347.2 / 2347.2 Output Total 300 / 300 300 / 300 Balance 2047.2 / 2047.2 -300 / -300 Lab / Micro Data Attestation: I reviewed the patient's lab results. 04/11/24 11:30 04/11/24 11:30 Labs: Laboratory Results - last 24 hr 04/11/24 11:30: WBC 11.2 H, RBC 4.25, Hgb 12.2, Hct 37.3, MCV 87.8, MCH 28.7, MCHC 32.7, RDW Std Deviation 46.2 H, RDW Coeff of Cassie 14.6, Plt Count 262, MPV 10.5, Immature Gran % (Auto) 0.500, Neut % (Auto) 74.7 H, Lymph % (Auto) 16.2 L, [place] % (Auto) 6.9, Eos % (Auto) 1.2, Baso % (Auto) 0.5, Absolute Neuts (auto) 8.4 H, Absolute Lymphs (auto) 1.83, Nucleated RBC % 0, Creatinine 0.63, Estim Creat Clear Calc 153.76, Est GFR (MDRD) Af Amer 141, Est GFR (MDRD) Non-Af 116, Uric Acid 5.2, AST 16, ALT 15, U Random Total Protein 11.7, Urine Creatinine 65.80, Protein/Creatinin Ratio 178, Syphilis Total Ab Non-reactive, Blood Type A POSITIVE, Antibody Screen NEGATIVE ROS Eyes Eyes: Denies blurry vision, change in vision or spots in vision ENT HEENT: Denies dizziness or headache(s) Cardiovascular Cardiovascular: Denies abdominal pain, chest pain or dyspnea Respiratory/Chest Respiratory/Chest: Denies cough, dyspnea, shortness of breath at rest or shortness of breath with exertion Gastrointestinal Gastrointestinal: Denies abdominal pain, diarrhea or vomiting Genitourinary Genitourinary: Denies change in urinary stream, difficulty urinating or dysuria Musculoskeletal Musculoskeletal: Reports none Integumentary Integumentary: Denies rash Neurologic Neurologic: Denies dizziness, headache(s), memory loss or weakness Physical Exam Const alert and no apparent distress General Appearance: cooperative and comfortable Exam Limitations: no limitations HEENT normocephalic Eyes General Eye: normal appearance of both eyes Neck full ROM General: normal visual inspection Chest Chest: symmetrical chest wall rise Resp normal respiratory effort and normal air movement Effort and Inspection: symmetric chest movement Auscultation: clear to auscultation bilaterally Cardio regular rate and regular rhythm GI normal to inspection, nondistended, normoactive bowel sounds Back/Spine normal ROM Extremity full ROM and no calf tenderness General Extremity: normal exam except as noted Skin no rashes or lesions noted Neuro oriented x3 Speech: speech normal Psych mental status grossly normal Thought Process: normal thought process Assessment & Plan (1) Second degree laceration of perineum, delivered, current hospitalization: (2) Single live : (3) (spontaneous vaginal delivery): (4) Gestational hypertension: (5) High risk multigravida in third trimester: (6) 37 weeks gestation of : PLAN: Plan PPD 1 Blood pressures ranging 121-134/69-81 Continue to monitor closely History of PP readmission for elevated blood pressures support
[2024-04-12] MEDS: Ibuprofen 600 MG Tablet PO ×2 (09:14→19:42)
[2024-04-12] MEDS: NIFEdipine 30 MG Tablet PO (10:46)
--- NOTE | 2024-04-12 13:06 | NURSING ---
student charting reviewed by this instructor
[2024-04-12 15:18] LABS: Absolute Lymphocyte Count 2.83 X10^3/uL (0.83-4.51); Absolute Neutrophil Count 10.8 X10^3/uL (2.0-7.7); Basophil# 0.06 X10^3/uL; Basophil% 0.4 % (0-1); Eosinophil# 0.14 X10^3/uL; Eosinophils% 0.9 % (0-5); Hematocrit 34.4 % (37-47); Hemoglobin 11.1 g/dL (12.0-15.0); Lymphocyte # 2.83 X10^3/ul (0.83-4.51); Lymphocyte % 18.7 % (19-41); Mean Corp Hgb Conc 32.3 g/dL (32-36); Mean Corpuscular Hgb 28.8 pg (27.0-32.0); Mean Corpuscular Volume 89.4 fL (81-99); Mean Platelet Vol. 10.6 fl (6.2-12.0); Monocyte# 1.18 X10^3/uL; Monocyte% 7.8 % (0-10); NRBC Flagged by Analyzer 0 % (0-5); Neutrophil # 10.79 X10^3/uL (2.7-7.7); Neutrophil % 71.3 % (47-70); Platelet Count 251 K/mm3 (150-450); RBC Distribution Width CV 14.9 % (11.6-14.6); RBC Distribution Width SD 47.8 fl (35.1-43.9); Red Blood Count 3.85 M/mm3 (4.2-5.4); White Blood Count 15.1 K/mm3 (4.4-11.0)
[2024-04-13 02:00] VITALS: BP 120/78; PULSE 73; RESP 16; TEMP 36.2; O2SAT 97
[2024-04-13 08:12] VITALS: BP 123/90; PULSE 79; RESP 16; TEMP 36.3; O2SAT 99
--- NOTE | 2024-04-13 10:06 | DS.PCM_ITS ---
Providers Date of Admission: 04/11/24 Primary Care Physician: Dr. Earl Wynne MD Reason For Visit: VAG Diagnosis Discharge Diagnosis (1) Second degree laceration of perineum, delivered, current hospitalization: Status: Acute Code(s): O70.1 - Second degree perineal laceration during delivery (2) Single live : Status: Acute Code(s): Z37.0 - Single live (3) (spontaneous vaginal delivery): Status: Acute Code(s): O80 - Encounter for full-term uncomplicated delivery (4) Gestational hypertension: Status: Acute Code(s): O13.9 - Gestational [-induced] hypertension without significant proteinuria, unspecified trimester (5) High risk multigravida in third trimester: Status: Acute Code(s): O09.43 - Supervision of with grand multiparity, third trimester (6) 37 weeks gestation of : Status: Acute Code(s): Z3A.37 - 37 weeks gestation of Plan PPD 2 Blood pressures ranging 121-140/69-96 Start Labetalol 100 mg PO BID Will have HTN monitoring program in place before discharge home tonight Patient aware of parameters to call / Pre eclampsia precautions reviewed History of PP readmission for elevated blood pressures D/C home with follow up this week in office for BP check Medications at Discharge Home Medications 103-folic acid 400 mcg-omeg3 32.5 mg-dha-fish oil chew tablet 1 ea PO DAILY Check with primary doctor 08/12/20 ibuprofen 600 mg tablet 600 mg PO Q6H PRN PRN Pain Score 1-10 #0 tabs 04/13/24 labetalol 100 mg tablet 100 mg PO BID #60 tabs 04/13/24 Hospital Course Operations None Procedures None Summary of Care Provided Minutes Spent on Discharge: 15 Hospital Course: Patient had vaginal delivery. Hospital course was uneventful. Physical Exam Narrative Patient seen at bedside. Denies pain. Ambulating and voiding without difficulty. Lochia decreased. Denies headache, vision changes, SOB, RUQ pain. Desires discharge home today. Const alert and oriented x3 General Appearance: Negative for in distress HEENT normocephalic Eyes General Eye: normal appearance of both eyes Neck General: normal visual inspection Chest Chest: symmetrical chest wall rise Resp normal respiratory effort and normal air movement Effort and Inspection: symmetric chest movement; Negative for tachypneic Auscultation: clear to auscultation bilaterally Cardio regular rate and regular rhythm Peripheral Pulses: pulses 2+ throughout GI normal to inspection, nondistended, normoactive bowel sounds Narrative: Ice to perineum OB / External & Speculum: vaginal bleeding and other Lochia decreasing Uterus Palpation: uterus fundus firm (Below U) Extremity normal to inspection, full ROM and normal capillary refill Skin no rashes or lesions noted Neuro oriented x3, CN's II-XII intact bilaterally and gait normal Psych mental status grossly normal, thought process normal and activity/motor behavior normal Weight / BMI Weight Weight: 234 lb Body Mass Index (BMI) 40.1 ABG / Lab / Microbiology Data 04/12/24 15:00 04/11/24 11:30 Laboratory: Laboratory Results - last 24 hr 04/12/24 15:00: WBC 15.1 H, RBC 3.85 L, Hgb 11.1 L, Hct 34.4 L, MCV 89.4, MCH 28.8, MCHC 32.3, RDW Std Deviation 47.8 H, RDW Coeff of Cassie 14.9 H, Plt Count 251, MPV 10.6, Immature Gran % (Auto) 0.900, Neut % (Auto) 71.3 H, Lymph % (Auto) 18.7 L, [place] % (Auto) 7.8, Eos % (Auto) 0.9, Baso % (Auto) 0.4, Absolute Neuts (auto) 10.8 H, Absolute Lymphs (auto) 2.83, Nucleated RBC % 0 D/C Instructions Discharge Diet: No restrictions Discharge Activity: Return to Normal Activity, No Restrictions, May Drive, May Shower and May Take a Tub Bath (Warm water only. No bath salts, soaps, bubbles) May resume sexual activity in: 6-8 weeks Weight Bearing Status: Weight bearing as tolerated Call your doctor if you observe: Fever of 101 or Higher, Inability to urinate, Using more than 1 pad per hour, Shortness of breath, Dizziness, Chest pain, Calf discomfort and Uncontrolled pain Please Follow Up With: [facility] Ramakrishna MARROQUIN When: 1 week for BP check/ BP monitoring Meaningful Use Info Meaningful Use Meaningful Use Diagnoses (Choose all that apply): None applicable Ischemic Stroke Statin Dosing Therapy Reference: STATIN DOSE THERAPY REFERENCE: * Patients > 75 years receive moderate or high dose statin therapy. * Patients 75 years or YOUNGER should receive HIGH intensity statin dose unless contraindicated. You will be required to document reason for non-treatment if statin daily dose does not meet guidelines. HIGH DOSE STATIN THERAPY DAILY Atorvastatin > than or = to 40 mg Rosuvastatin > than or = to 20 mg Amlodipine + Atorvastatin > than or = to 2.5/40 mg Ezetimibe + Simvastatin 10/80 mg Simvastatin 80mg Discharge Plan Admission Admit Date/Time: 04/11/24 13:16 Primary Reason for Your Visit: Labor and Delivery Attending Provider: Sindi Han Primary Care Provider: aErl Wynne Discharge Orders/Prescriptions Prescriptions: New ibuprofen 600 mg Tablet 600 mg PO Q6H PRN PRN (Reason: Pain Score 1-10) Qty: 0 0RF labetalol 100 mg Tablet 100 mg PO BID Qty: 60 2RF Continued PNV [id number]-fish oil 1 EACH tablet,chewable 1 ea PO DAILY Discontinued aspirin [Marcio Chewable Aspirin] 81 mg tablet,chewable 2 tab PO DAILY cholecalciferol (vitamin D3) [Vitamin D3] 25 mcg (1,000 unit) capsule 1,000 unit PO QDAY Referrals / Follow Up: Karen Romero CNM [Med Staff - Adv Practice Prof] - Earl Wynne MD [Primary Care Provider] - Disposition Disposition (needs filled in before D/C Order can be placed): Home, Self Care
[2024-04-13 11:15] VITALS: BP 121/87
[2024-04-13] MEDS: Labetalol 100 MG Tablet PO (11:15)
== END 2024-04-13 11:50 | disposition home or self-care (01) | DRG 807 ==
PROVIDERS: Admitting Provider Obstetrics & Gynecology; PCP Family Medicine; Referring Provider Obstetrics & Gynecology; Visit Provider Obstetrics & Gynecology
DX: O13.4 Gestational [pregnancy-induced] hypertension without significant proteinuria, complicating childbirth (principal); Z37.0 Single live birth; O26.03 Excessive weight gain in pregnancy, third trimester; Z3A.37 37 weeks gestation of pregnancy; O69.81X0 Labor and delivery complicated by cord around neck, without compression, not applicable or unspecified; O70.1 Second degree perineal laceration during delivery; Z87.59 Personal history of other complications of pregnancy, childbirth and the puerperium
CPT/HCPCS: 59025; 59050; 82565; 82570; 84156; 84450; 84460; 84550; 85025; 85027; 86780; 86850; 86900; 86901; 99221; J7120; G0378; J2405